=== PATIENT | male | born 1975 | race Caucasian/White ===

== ENCOUNTER 2021-07-02 07:48 | Emergency (ER) | payer OTHER, SELFPAY ==
[2021-07-02 07:52] VITALS: BP 132/77; PULSE 68; RESP 20; TEMP 36.4; O2SAT 98
--- NOTE | 2021-07-02 08:58 | ED.EAR ---
HPI - Ear Problem General Chief complaint: Ear Stated complaint: R ear pain Time Seen by Provider: 07/02/21 08:52 Source: patient Mode of arrival: ambulatory Limitations: no limitations History of Present Illness HPI Narrative: Patient is a 45-year-old male presenting to the emergency department for evaluation of right ear pain. Pain is dull, aching in nature at times it is quite sharp. Pain is been present and worsening over the past 72 hours. Patient denies any discharge or drainage from the ear. No swelling of the external ear or pain behind the ear. No redness. He denies fever, chills. Patient does report some sinus congestion last week but that remained mostly on the left side. He denies left ear pain. He denies neck pain. No cough, chest pain, shortness of breath. Patient has a history of symptomatic Covid infection in August 2020, for which she did not require hospitalization. He is unvaccinated. He denies recent sick contacts. He is not diabetic. Related Data Allergies Allergy/AdvReac Type Severity Reaction Status Date / Time No Known Allergies Allergy Unknown Verified 07/02/21 07:55 Review of Systems Review of Systems: CONSTITUTIONAL: Denies fever, chills, or sweats. EYES: Denies visual changes, redness, or discharge. ENT: Denies rhinorrhea, reports congestion, denies sore throat, reports right-sided otalgia CARDIOVASCULAR: Denies chest pain, palpitations, or edema. RESPIRATORY: Denies cough or dyspnea. GASTROINTESTINAL: Denies abdominal pain, nausea, vomiting, or diarrhea. SKIN: Denies rash or itching. MUSCULOSKELETAL: Denies back pain NEUROLOGIC: Denies headache, numbness, or weakness. [facility] Past Medical History Medical History (Updated 07/02/21 @ 09:12 by Charito Ballesteros MD) Left calcaneal fracture Social History Social History (Updated 07/02/21 @ 09:09 by Charito Ballesteros MD) Smoking status: Never smoker Alcohol intake: never Substance use: never Living arrangements: with family Exam Narrative: GENERAL: Awake, alert, conversant HEAD: Normocephalic, atraumatic. EYES: PERRLA and EOMI. ENT: Nares clear, no rhinorrhea or epistaxis. Mucous membranes moist. Left tympanic membrane is partially occluded with cerumen, but is normal otherwise on inspection with intact light reflex, no perforation identified. The right ear has evidence of edema in the external ear canal, purulent ear effusion, consistent with otitis media. Pinna is not edematous. No erythema pre or postauricular early. No evidence of mastoiditis. No tympanic membrane per. NECK: Supple. No anterior or posterior, cervical pre or posterior auricular lymphadenopathy. CHEST: No respiratory distress, breathing even and non labored HEART: Regular rate, sinus rhythm ABDOMEN:Non distended, non tender EXTREMITIES: Normal range of motion. No edema. SKIN: Warm, dry, no rash. NEURO:No focal deficits. Alert and oriented x3 Course Vital Signs Vital signs: Vital Signs Temperature 36.4 C 07/02/21 07:52 Pulse Rate 68 07/02/21 07:52 Respiratory Rate 20 07/02/21 07:52 Blood Pressure 132/77 07/02/21 07:52 Pulse Oximetry 98 07/02/21 07:52 Temperature 36.4 C 07/02/21 07:52 Pulse Rate 68 07/02/21 07:52 Respiratory Rate 20 07/02/21 07:52 Blood Pressure 132/77 07/02/21 07:52 Pulse Oximetry 98 07/02/21 07:52 Medical Decision Making MDM Narrative Medical decision making narrative: Patient presented for evaluation of right ear pain. At the time of assessment, ABCs are intact and vital signs are stable. On exam, patient with evidence of right otitis media, with some involvement of the external ear canal. There is a purulent effusion without perforation present. Patient has no signs of mastoiditis clinically. No neck edema. No other systemic symptoms such as fever, chills, cough or shortness of breath. Less likely to be Covid based on symptoms. As patient is hemodynamically stable, will plan for out
== END 2021-07-02 09:37 | disposition home or self-care (01) ==
PROVIDERS: Emergency Provider Emergency Medicine; PCP Internal Medicine
DX: H66.91 Otitis media, unspecified, right ear (principal); Z86.16 Personal history of COVID-19
CPT/HCPCS: 99283

== ENCOUNTER 2023-07-15 20:36 | Outpatient (NON) | payer OTHER, SELFPAY | END 2023-07-15 20:37 | disposition home or self-care (01) | LOC: ANHLAB 20:44 | PROVIDERS: PCP Internal Medicine; Visit Provider Otolaryngology | DX: J36 Peritonsillar abscess (principal) | CPT/HCPCS: 87070; 87075; 87076; 87185; 87205 ==